=== PATIENT | female | born 2005 | race Caucasian/White ===

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

== ENCOUNTER → 2024-08-05 12:17 | Outpatient (CLI) | payer OTHER, SELFPAY ==
--- NOTE | 2024-08-05 12:19 | DI.US.S_ITS ---
PROCEDURE: US PELVIC COMPLETE INDICATIONS: OVARIAN CYSTS TECHNIQUE: Real-time scanning was performed of the pelvic organs, with image documentation. Additional endovaginal scanning was necessary due to incomplete visualization of the adnexal and endometrial structures by transabdominal scanning. COMPARISON: [facility], US, US PELVIC COMPLETE, 08/25/2023, 12:00. FINDINGS: Uterus: Uterus is anteverted and normal in size at 6.9 x 3.5 x 6.1 cm. The myometrium is homogeneous. The endometrium measures 7 mm combined thickness. Ovaries: The right ovary measures 2.2 x 4.4 x 2 cm, with a calculated ovarian volume of 10 cc. The left ovary measures 2.4 x 2.9 x 1.4 cm, with a calculated ovarian volume of 5 cc. The ovaries have a normal sonographic appearance. More than 12 follicles can be seen in the right ovary. No adnexal masses are seen. Other: No pathologic free abdominal or pelvic fluid. IMPRESSION: More than 12 follicles can be seen involving the right ovary, which is suggestive of polycystic ovarian syndrome. However, please correlate with clinical data. No suspicious solitary ovarian cyst can be seen. We strive to produce accurate, complete, and clear reports of imaging services. To assist us in improving patient care, this report was composed using standard report templates and voice recognition software. Therefore, it may contain abnormal punctuation, insertions and/or omissions. Occasional wrong-word or sound-alike substitutions may occur. Though we review the report and make efforts to correct it, we do recommend that the report be read carefully in proper context to recognize any text inaccuracies. Dictated by: Anjum South M.D. on 08/06/2024 at 16:13 Approved by: Anjum South M.D. on 08/06/2024 at 16:23
== END ==
LOC: US 12:18
DX: N83.209 Unspecified ovarian cyst, unspecified side (principal)
CPT/HCPCS: 76830; 76856; 93975